=== PATIENT | male | born 1945 | race American Indian/Alaskan Native ===

== ENCOUNTER 2016-10-24 13:34 | Emergency (ER) | payer SELFPAY ==
[2016-10-24 15:11] LABS: Basophils % (Auto) 0.6 % (0.0-1.8); Eosinophils % (Auto) 7.7 % (0.0-4.3); Hematocrit 40.1 % (35.5-45.6); Hemoglobin 13.4 gm/dl (11.8-15.2); Mean Corpuscular HGB Conc 33 % (32-34); Mean Corpuscular Hemoglobin 31 pg (28-32); Mean Corpuscular Volume 94 fl (84-94); Platelet Count 212 K/mm3 (140-440); Red Blood Count 4.27 M/mm3 (3.65-5.03); Red Cell Distribution Width 12.5 % (13.2-15.2)
[2016-10-24 15:30] LABS: Alanine Aminotransferase 17 units/L (7-56); Albumin 3.7 g/dL (3.9-5); Alkaline Phosphatase 56 units/L (35-129); Anion Gap 17 mmol/L; BUN/Creatinine Ratio 17.77; Bilirubin,Total 0.4 mg/dL (0.1-1.2); Blood Urea Nitrogen 16 mg/dL (9-20); Calcium 8.9 mg/dL (8.4-10.2); Carbon Dioxide 23 mmol/L (22-30); Chloride 98.3 mmol/L (98-107); Glucose 286 mg/dL (75-100); Lipase 37 units/L (13-60); Potassium 4.2 mmol/L (3.6-5.0); Sodium 134 mmol/L (137-145); Total Protein 7.4 g/dL (6.3-8.2)
[2016-10-24 17:08] LABS: Bilirubin,Urine NEG (Negative); Blood,Urine NEG (Negative); Ketones,Urine NEG (Negative); Leukocyte Esterase,Urine NEG (Negative); Mucus,Urine FEW /HPF; Nitrite,Urine NEG (Negative); Protein,Urine <15 mg/dL mg/dL (Negative); RBC,Urine < 1.0 /HPF (0.0-6.0); Urobilinogen,Urine < 2.0 mg/dL (<2.0)
[2016-10-24] MEDS ORDERED: ULTRAM PO ONE (17:35)
--- NOTE | 2016-10-24 18:27 | Emergency Department Report ---
ED General Adult HPI - General Chief complaint: Abdominal Pain Stated complaint: ARTHRITIS,ABD PAIN Time Seen by Provider: 10/24/16 17:27 Source: patient Mode of arrival: Ambulatory Limitations: No Limitations - History of Present Illness Initial comments: 71-year-old male with a past medical history of hypertension, glaucoma, diabetes , and arthritis presents to the hospital complains of chronic arthritis pain and chronic GERD. Patient does not appear to have any new or worsening complaints. He has had intermittent pain to his hand secondary to arthritis for at least 2 years. Patient also states he has GERD and has had endoscopy and colonoscopy in the past. He was recently seen by his PMD Dr. Deedee Wagner and states that his labs were unremarkable. Deedee Wagner referred him to a mental health therapist for further treatment and evaluation of his chronic arthritis. Patient states he called the office of the mental health therapist several times a did not have a response so sided to come to the ER for evaluation. No denies fever , swelling, injury, trauma, nausea, vomiting, melena, or hematochezia. Patient is requesting an alternative medication for his stomach acid since his current one is too expensive. Patient's blood sugar is elevated and states he did not take his diabetes medication today. Last dose was yesterday. Patient has pain medication at home but cannot recall the name of the medication but stated typically helps with his pain - Related Data Home Medications Medication Instructions Recorded Confirmed Last Taken Lisinopril/Hydrochlorothiazide 1 tab PO QDAY 12/14/15 12/14/15 Unknown [Zestoretic 10-12.5 mg] Metformin HCl [Glucophage] 1,000 mg PO BID 12/14/15 12/14/15 Unknown glipiZIDE [glipiZIDE XL] 10 mg PO DAILY 12/14/15 12/14/15 Unknown Previous Rx's Medication Instructions Recorded Last Taken Type Cyclobenzaprine [Flexeril 10 MG 10 mg PO TID PRN #15 tablet 11/26/15 Unknown Rx TAB] traMADol [Ultram 50 MG tab] 50 mg PO Q4HR PRN #15 tablet 11/26/15 Unknown Rx Famotidine [Pepcid] 20 mg PO BID #60 tablet 12/16/15 Unknown Rx Esomeprazole Magnesium [Nexium 22.3 mg PO DAILY #30 capsule. 10/24/16 Unknown Rx 24Hr] Allergies Allergy/AdvReac Type Severity Reaction Status Date / Time shellfish derived Allergy Swelling Verified 11/26/15 09:13 ED Review of Systems ROS: Stated complaint: ARTHRITIS,ABD PAIN Other details as noted in HPI Comment: All other systems reviewed and negative Other: Constitutional: No fevers chills Eyes: No eye pain visual changes ENT: No ear pain or throat pain Neck: Denies pain Respiratory: Denies cough wheezing shortness of breath Cardiovascular: Denies chest pain, palpitations, syncope GI: Denies nausea, vomiting, diarrhea, constipation, melena hematochezia : Denies dysuria Musculoskeletal: as per hpi Skin: Denies rash, lesions, erythema Neurologic: Denies headache, numbness, weakness Psychiatric: Denies suicidal ideation, hallucinations Hematological/lymphatic: Denies easy bruising, lymphadenopathy ED Past Medical Hx - Past Medical History Previous Medical History?: Yes Hx Hypertension: Yes Hx Diabetes: Yes Hx Arthritis: Yes (hands) Hx HIV: No Additional medical history: GLAUCOMA - Surgical History Past Surgical History?: No - Social History Smoking Status: Former Smoker Substance Use Type: Alcohol, Prescribed - Medications Home Medications: Home Medications Medication Instructions Recorded Confirmed Last Taken Type Cyclobenzaprine [Flexeril 10 MG 10 mg PO TID PRN #15 tablet 11/26/15 12/14/15 Unknown Rx TAB] traMADol [Ultram 50 MG tab] 50 mg PO Q4HR PRN #15 tablet 11/26/15 12/14/15 Unknown Rx Lisinopril/Hydrochlorothiazide 1 tab PO QDAY 12/14/15 12/14/15 Unknown History [Zestoretic 10-12.5 mg] Metformin HCl [Glucophage] 1,000 mg PO BID 12/14/15 12/14/15 Unknown History glipiZIDE [glipiZIDE XL] 10 mg PO DAILY 12/14/15 12/14/15 Unknown History Famotidine [Pepcid] 20 mg PO BID #60 tablet 12/16/15 Unknown Rx Esomeprazole Magnesium [Nexium 22.3 mg PO DAILY #30 capsule. 10/24/16 Unknown Rx 24Hr] ED Physical Exam - General Limitations: No Limitations - Other Other exam information: General: No limitations, patient is alert in no acute distress Head exam: Atraumatic, normocephalic Eyes exam: Normal appearance ENT: Moist mucous membrane, normal oropharynx Neck exam: Normal inspection, full range of motion Respiratory exam: Clear to auscultation bilateral, no wheezes, rales, crackles Cardiovascular: Normal rate and rhythm, normal heart sounds Abdomen: Soft, nondistended, and nontender, with normal bowel sounds, no rebound, or guarding Extremity: Full range of motion normal inspection no deformity Back: Normal Inspection, full range of motion, no tenderness Neurologic: Alert, oriented x3, cranial nerves intact, no motor or sensory deficit Psychiatric: normal affect, normal mood Skin: Warm, dry, intact ED Course Vital Signs 10/24/16 10/24/16 10/24/16 14:10 17:13 18:00 Temperature 98.2 F Pulse Rate 64 Respiratory 18 Rate Blood Pressure 169/67 132/72 O2 Sat by Pulse 100 100 92 Oximetry ED Medical Decision Making - Lab Data Result diagrams: 10/24/16 14:32 10/24/16 14:32 Lab Results 10/24/16 10/24/16 10/24/16 Range/Units 14:32 14:32 15:50 WBC 6.0 (4.5-11.0) K/mm3 RBC 4.27 (3.65-5.03) M/mm3 Hgb 13.4 (11.8-15.2) gm/dl Hct 40.1 (35.5-45.6) % MCV 94 (84-94) fl MCH 31 (28-32) pg MCHC 33 (32-34) % RDW 12.5 L (13.2-15.2) % Plt Count 212 (140-440) K/mm3 Lymph % (Auto) 34.6 (13.4-35.0) % [place] % (Auto) 10.4 H (0.0-7.3) % Eos % (Auto) 7.7 H (0.0-4.3) % Baso % (Auto) 0.6 (0.0-1.8) % Lymph # 2.1 (1.2-5.4) K/mm3 [place] # 0.6 (0.0-0.8) K/mm3 Eos # 0.5 H (0.0-0.4) K/mm3 Baso # 0.0 (0.0-0.1) K/mm3 Seg Neutrophils % 46.7 (40.0-70.0) % Seg Neutrophils # 2.8 (1.8-7.7) K/mm3 Sodium 134 L (137-145) mmol/L Potassium 4.2 (3.6-5.0) mmol/L Chloride 98.3 (98-107) mmol/L Carbon Dioxide 23 (22-30) mmol/L Anion Gap 17 mmol/L BUN 16 (9-20) mg/dL Creatinine 0.9 (0.8-1.5) mg/dL Estimated GFR > 60 ml/min BUN/Creatinine Ratio 17.77 % Glucose 286 H (75-100) mg/dL Calcium 8.9 (8.4-10.2) mg/dL Total Bilirubin 0.4 (0.1-1.2) mg/dL AST 15 (5-40) units/L ALT 17 (7-56) units/L Alkaline Phosphatase 56 (35-129) units/L Total Protein 7.4 (6.3-8.2) g/dL Albumin 3.7 L (3.9-5) g/dL Albumin/Globulin Ratio 1.0 % Lipase 37 (13-60) units/L Urine Color Yellow (Yellow) Urine Turbidity Clear (Clear) Urine pH 6.0 (5.0-7.0) Ur Specific [place] 1.016 (1.003-1.030) Urine Protein <15 mg/dl (Negative) mg/dL Urine Glucose (UA) >=500 (Negative) mg/dL Urine Ketones Neg (Negative) mg/dL Urine Blood Neg (Negative) Urine Nitrite Neg (Negative) Urine Bilirubin Neg (Negative) Urine Urobilinogen < 2.0 (<2.0) mg/dL Ur Leukocyte Esterase Neg (Negative) Urine WBC (Auto) 0.0 (0.0-6.0) /HPF Urine RBC (Auto) < 1.0 (0.0-6.0) /HPF Urine Mucus Few /HPF - Medical Decision Making No acute medical edition exists. Patient be encouraged to follow-up with mental health therapist and primary care doctor for further management. I will place him on Nexium since he is requesting an alternative stomach acid medication. Glucose likely elevated since patient did have his diabetes medication today. No signs of DKA and Upon recheck glucose was 180's so no insulin given. Should be encouraged to continue his current diabetes medication Meds received in the ED: Tramadol - Differential Diagnosis arthritis, GERD, chronic pain Critical Care Time: No Critical care attestation.: If time is entered above; I have spent that time in minutes in the direct care of this critically ill patient, excluding procedure time. ED Disposition Clinical Impression: Diabetes, Arthritis, GERD (gastroesophageal reflux disease) Disposition: DISCHARGED TO HOME OR SELFCARE Is pt being admited?: No Does the pt Need Aspirin: No Condition: Stable Additional Instructions: Follow up with either of the mental health therapist provided (3 names were provided). Continue taking current pain medication. He had been started on a different stomach acid medication. Return if symptoms worsen. Prescriptions: Esomeprazole Magnesium [Nexium 24Hr] 22.3 mg PO DAILY #30 capsule.dr Referrals: DEEDEE WAGNER MD [Primary Care Provider] - 3-5 Days JARRETT LOUIE MD [Staff Physician] - 3-5 Days FARRAH OCHOA MD [Referring] - 3-5 Days ANNETTE FELIZ MD [Referring] - 3-5 Days Time of Disposition: 18:39
[2016-10-24 18:28] VITALS: BP 132/72
== END 2016-10-24 19:04 | disposition home or self-care (01) ==
LOC: ED 13:34
DX: K21.9 Gastro-esophageal reflux disease without esophagitis (principal); M19.90 Unspecified osteoarthritis, unspecified site; E11.9 Type 2 diabetes mellitus without complications; I10 Essential (primary) hypertension; H40.9 Unspecified glaucoma; Z87.891 Personal history of nicotine dependence; Z91.013 Allergy to seafood
CPT/HCPCS: 36415; 80053; 81001; 82962; 83690; 85025; 99283

== ENCOUNTER 2019-04-23 06:15 | Emergency (ER) | payer OTHER ==
[2019-04-23] MEDS ORDERED: ASPIRIN PO ONE (06:24)
--- NOTE | 2019-04-23 07:19 | XRay Report ---
CHEST 1 VIEW 0640 INDICATION / CLINICAL INFORMATION: Chest Pain. COMPARISON: 11/26/2015 FINDINGS: SUPPORT DEVICES: None HEART / MEDIASTINUM: No significant abnormality. LUNGS / PLEURA: No significant pulmonary or pleural abnormality. No pneumothorax. ADDITIONAL FINDINGS: No significant additional findings. IMPRESSION: No significant acute abnormality Signer Name: Campbell Call MD Signed: 04/23/2019 7:15 AM Workstation Name: [id number]
[2019-04-23 07:30] LABS: BUN/Creatinine Ratio 22; Blood Urea Nitrogen 24 mg/dL (9-20); Calcium 9.7 mg/dL (8.4-10.2); Hemolysis Index 17
[2019-04-23 07:44] LABS: Basophils % (Auto) 0.7 % (0.0-1.8); Eosinophils # (Auto) 0.2 K/mm3 (0.0-0.4); Eosinophils % (Auto) 3.6 % (0.0-4.3); Hematocrit 33.7 % (35.5-45.6); Hemoglobin 11.5 gm/dl (11.8-15.2); Lymphocytes % (Auto) 17.5 % (13.4-35.0); Mean Corpuscular HGB Conc 34 % (32-34); Mean Corpuscular Volume 93 fl (84-94); Monocytes # (Auto) 0.5 K/mm3 (0.0-0.8); Monocytes % (Auto) 8.2 % (0.0-7.3); Platelet Count 326 K/mm3 (140-440); Red Blood Count 3.62 M/mm3 (3.65-5.03); Red Cell Distribution Width 12.6 % (13.2-15.2)
[2019-04-23] MEDS ORDERED: ZOFRAN IV ONE (08:58)
[2019-04-23] MEDS ORDERED: NACL 0.9% 1000 ML 1,000 ML IV ONE (08:58)
[2019-04-23] MEDS ORDERED: ALUM-MAG HYDROX-SIMETH 200-200-20MG/5ML PO ONE (08:58)
[2019-04-23] MEDS ORDERED: PEPCID IV ONE (08:58)
[2019-04-23] MEDS ORDERED: LIDOCAINE VISCOUS 2% PO ONE (08:59)
[2019-04-23 09:25] LABS: Alanine Aminotransferase 11 units/L (7-56); Albumin 4.2 g/dL (3.9-5)
--- NOTE | 2019-04-23 09:28 | Emergency Department Report ---
ED Abdominal Pain HPI - General Chief Complaint: Chest Pain Stated Complaint: ABD PAIN/NAUSEA Time Seen by Provider: 04/23/19 08:36 Source: patient, family, old records reviewed Mode of arrival: Ambulatory Limitations: No Limitations - History of Present Illness Initial Comments: 73-year-old male with a past medical history of hypertension, prostate treated with radiation seeds, and glaucoma presents to the hospital withcomplains of intermittent nausea, vomiting, and epigastric pain 3 weeks. Patient having intermittent vomiting and "spitting" symptoms. Patient complains of decreased appetite and 40 pound weight loss since October. Last night he developed epigastric burning pain radiating to the chest which is constant. Patient denies hematochezia, hematemesis, fever, dysuria, diarrhea, or recent travel. Like stool "on and off". Patient was admitted here in December 2015 for GI bleed. He had a normal colonoscopy within normal EGD with suspected diagnosis of gastritis. Patient is noticed to have intermittent spitting episodes here in the ED. He denies feeling like food is getting stuck in his chest with swallowing. Denies previous abdominal surgeries.Patient does not have a primary care doctor. Patient currently taking Carafate, ranitidine 300 daily at bedtime, and cyproheptadine for appetite prescribed by an urgent care center. Severity scale (0 -10): 5 - Related Data Home Medications Medication Instructions Recorded Confirmed Last Taken Lisinopril/Hydrochlorothiazide 1 tab PO QDAY 12/14/15 12/14/15 Unknown [Zestoretic 10-12.5 mg] Metformin HCl [Glucophage] 1,000 mg PO BID 12/14/15 12/14/15 Unknown glipiZIDE [glipiZIDE XL] 10 mg PO DAILY 12/14/15 12/14/15 Unknown Previous Rx's Medication Instructions Recorded Last Taken Type Cyclobenzaprine [Flexeril 10 MG 10 mg PO TID PRN #15 tablet 11/26/15 Unknown Rx TAB] traMADol [Ultram 50 MG tab] 50 mg PO Q4HR PRN #15 tablet 11/26/15 Unknown Rx Famotidine [Pepcid] 20 mg PO BID #60 tablet 12/16/15 Unknown Rx Esomeprazole Magnesium [Nexium 22.3 mg PO DAILY #30 capsule. 10/24/16 Unknown Rx 24Hr] Ondansetron [Zofran Odt] 4 mg PO Q8HR PRN #20 tab.rapdis 04/23/19 Unknown Rx Allergies Allergy/AdvReac Type Severity Reaction Status Date / Time shellfish derived Allergy Swelling Verified 11/26/15 09:13 ED Review of Systems ROS: Stated complaint: ABD PAIN/NAUSEA Other details as noted in HPI Comment: All other systems reviewed and negative ED Past Medical Hx - Past Medical History Previous Medical History?: Yes Hx Hypertension: Yes Hx Diabetes: Yes Hx of Cancer: Yes (prostate) Hx Arthritis: Yes (hands) Hx HIV: No Additional medical history: GLAUCOMA - Surgical History Past Surgical History?: Yes Additional Surgical History: prostate seeds - Social History Smoking Status: Never Smoker Substance Use Type: None - Medications Home Medications: Home Medications Medication Instructions Recorded Confirmed Last Taken Type Cyclobenzaprine [Flexeril 10 MG 10 mg PO TID PRN #15 tablet 11/26/15 12/14/15 Unknown Rx TAB] traMADol [Ultram 50 MG tab] 50 mg PO Q4HR PRN #15 tablet 11/26/15 12/14/15 Unknown Rx Lisinopril/Hydrochlorothiazide 1 tab PO QDAY 12/14/15 12/14/15 Unknown History [Zestoretic 10-12.5 mg] Metformin HCl [Glucophage] 1,000 mg PO BID 12/14/15 12/14/15 Unknown History glipiZIDE [glipiZIDE XL] 10 mg PO DAILY 12/14/15 12/14/15 Unknown History Famotidine [Pepcid] 20 mg PO BID #60 tablet 12/16/15 Unknown Rx Esomeprazole Magnesium [Nexium 22.3 mg PO DAILY #30 capsule. 10/24/16 Unknown Rx 24Hr] Ondansetron [Zofran Odt] 4 mg PO Q8HR PRN #20 tab.rapdis 04/23/19 Unknown Rx ED Physical Exam - General Limitations: Other - Other Other exam information: Gen.: No acute distress Head: Atraumatic Eyes: Normal appearance EENT: Moist mucous membranes Neck: Normal appearance, no posterior midline tenderness, no meningismus Chest: Clear to auscultation bilaterally Cardiovascular: Regular rate and rhythm Abdomen: Normal appearance, soft, nontender, no rebound or guarding, normal bowel sounds Back: Normal appearance, nontender Extremity: Full range of motion, normal appearance Neuro: Alert, clear speech, no focal motor or sensory deficit Psychiatric: Appropriate Skin: No rash ED Course Vital Signs 04/23/19 04/23/19 04/23/19 06:21 08:34 08:35 Temperature 98.5 F 98.2 F Pulse Rate 67 50 L Respiratory 14 14 14 Rate Blood Pressure 148/63 Blood Pressure 139/56 [Left] O2 Sat by Pulse 100 100 100 Oximetry 04/23/19 04/23/19 04/23/19 09:31 10:00 10:45 Temperature Pulse Rate 73 62 56 L Respiratory 12 9 L 13 Rate Blood Pressure 142/68 135/69 142/68 Blood Pressure [Left] O2 Sat by Pulse 98 95 98 Oximetry 04/23/19 11:21 Temperature Pulse Rate 56 L Respiratory 13 Rate Blood Pressure Blood Pressure 112/55 [Left] O2 Sat by Pulse 97 Oximetry - Reevaluation(s) Reevaluation #1: 04/23/19 12:06 pt tolerating po intake and feels better with ED tx ED Medical Decision Making - Lab Data Result diagrams: 04/23/19 06:46 04/23/19 06:46 Lab Results 04/23/19 04/23/19 04/23/19 Range/Units 06:46 06:46 06:57 WBC 5.9 (4.5-11.0) K/mm3 RBC 3.62 L (3.65-5.03) M/mm3 Hgb 11.5 L (11.8-15.2) gm/dl Hct 33.7 L (35.5-45.6) % MCV 93 (84-94) fl MCH 32 (28-32) pg MCHC 34 (32-34) % RDW 12.6 L (13.2-15.2) % Plt Count 326 (140-440) K/mm3 Lymph % (Auto) 17.5 (13.4-35.0) % [place] % (Auto) 8.2 H (0.0-7.3) % Eos % (Auto) 3.6 (0.0-4.3) % Baso % (Auto) 0.7 (0.0-1.8) % Lymph # 1.0 L (1.2-5.4) K/mm3 [place] # 0.5 (0.0-0.8) K/mm3 Eos # 0.2 (0.0-0.4) K/mm3 Baso # 0.0 (0.0-0.1) K/mm3 Seg Neutrophils % 70.0 (40.0-70.0) % Seg Neutrophils # 4.1 (1.8-7.7) K/mm3 Sodium 137 (137-145) mmol/L Potassium 3.9 (3.6-5.0) mmol/L Chloride 96.9 L (98-107) mmol/L Carbon Dioxide 26 (22-30) mmol/L Anion Gap 18 mmol/L BUN 24 H (9-20) mg/dL Creatinine 1.1 (0.8-1.5) mg/dL Estimated GFR > 60 ml/min BUN/Creatinine Ratio 22 % Glucose 133 H (75-100) mg/dL Calcium 9.7 (8.4-10.2) mg/dL Total Bilirubin 0.40 (0.1-1.2) mg/dL Direct Bilirubin < 0.2 (0-0.2) mg/dL AST 14 (5-40) units/L ALT 11 (7-56) units/L Alkaline Phosphatase 53 (35-129) units/L Troponin T < 0.010 (0.00-0.029) ng/mL Total Protein 7.7 (6.3-8.2) g/dL Albumin 4.2 (3.9-5) g/dL Albumin/Globulin Ratio 1.2 % Lipase 35 (13-60) units/L Urine Color (Yellow) Urine Turbidity (Clear) Urine pH (5.0-7.0) Ur Specific [place] (1.003-1.030) Urine Protein (Negative) mg/dL Urine Glucose (UA) (Negative) mg/dL Urine Ketones (Negative) mg/dL Urine Blood (Negative) Urine Nitrite (Negative) Urine Bilirubin (Negative) Urine Urobilinogen (<2.0) mg/dL Ur Leukocyte Esterase (Negative) Urine WBC (Auto) (0.0-6.0) /HPF Urine RBC (Auto) (0.0-6.0) /HPF Urine Mucus /HPF 04/23/19 04/23/19 Range/Units 09:21 Unknown WBC (4.5-11.0) K/mm3 RBC (3.65-5.03) M/mm3 Hgb (11.8-15.2) gm/dl Hct (35.5-45.6) % MCV (84-94) fl MCH (28-32) pg MCHC (32-34) % RDW (13.2-15.2) % Plt Count (140-440) K/mm3 Lymph % (Auto) (13.4-35.0) % [place] % (Auto) (0.0-7.3) % Eos % (Auto) (0.0-4.3) % Baso % (Auto) (0.0-1.8) % Lymph # (1.2-5.4) K/mm3 [place] # (0.0-0.8) K/mm3 Eos # (0.0-0.4) K/mm3 Baso # (0.0-0.1) K/mm3 Seg Neutrophils % (40.0-70.0) % Seg Neutrophils # (1.8-7.7) K/mm3 Sodium (137-145) mmol/L Potassium (3.6-5.0) mmol/L Chloride (98-107) mmol/L Carbon Dioxide (22-30) mmol/L Anion Gap mmol/L BUN (9-20) mg/dL Creatinine (0.8-1.5) mg/dL Estimated GFR ml/min BUN/Creatinine Ratio % Glucose (75-100) mg/dL Calcium (8.4-10.2) mg/dL Total Bilirubin (0.1-1.2) mg/dL Direct Bilirubin (0-0.2) mg/dL AST (5-40) units/L ALT (7-56) units/L Alkaline Phosphatase (35-129) units/L Troponin T < 0.010 (0.00-0.029) ng/mL Total Protein (6.3-8.2) g/dL Albumin (3.9-5) g/dL Albumin/Globulin Ratio % Lipase (13-60) units/L Urine Color Yellow (Yellow) Urine Turbidity Clear (Clear) Urine pH 6.0 (5.0-7.0) Ur Specific [place] 1.025 (1.003-1.030) Urine Protein <15 mg/dl (Negative) mg/dL Urine Glucose (UA) Neg (Negative) mg/dL Urine Ketones 20 (Negative) mg/dL Urine Blood Neg (Negative) Urine Nitrite Neg (Negative) Urine Bilirubin Neg (Negative) Urine Urobilinogen 4.0 (<2.0) mg/dL Ur Leukocyte Esterase Neg (Negative) Urine WBC (Auto) < 1.0 (0.0-6.0) /HPF Urine RBC (Auto) < 1.0 (0.0-6.0) /HPF Urine Mucus Few /HPF - EKG Data -: EKG Interpreted by [facility] EKG shows normal: sinus rhythm, ST-T waves (no stemi) Rate: normal - EKG Data When compared to previous EKG there are: no significant change - Radiology Data Radiology results: report reviewed CHEST 1 VIEW 0640 INDICATION / CLINICAL INFORMATION: Chest Pain. COMPARISON: 11/26/2015 FINDINGS: SUPPORT DEVICES: None HEART / MEDIASTINUM: No significant abnormality. LUNGS / PLEURA: No significant pulmonary or pleural abnormality. No pneumothorax. ADDITIONAL FINDINGS: No significant additional findings. IMPRESSION: No significant acute abnormality CT ABDOMEN AND PELVIS WITH CONTRAST INDICATION / CLINICAL INFORMATION: nausea, vomiting, weight loss, dec appetite. TECHNIQUE: Axial CT images were obtained through the abdomen and pelvis after 100 mL Omnipaque [address] scans at this location are performed using CT dose reduction for ALARA by means of automated exposure control. COMPARISON: None available. FINDINGS: LOWER CHEST: No significant abnormality. LIVER: No significant abnormality. GALLBLADDER: No significant abnormality. BILE DUCTS: No significant abnormality. PANCREAS: No significant abnormality. SPLEEN: No significant abnormality. ADRENALS: 1.3 x 1.6 cm hypodense right adrenal nodule measuring 26 Hounsfield units on this postcontrast study. Left adrenal appears normal. RIGHT KIDNEY and URETER: No significant abnormality. LEFT KIDNEY and URETER: No significant abnormality. STOMACH and SMALL BOWEL: No significant abnormality. COLON: Increased density throughout the colon possibly from recent oral contrast or other ingested material. No acute findings. APPENDIX: No significant abnormali ty. PERITONEUM: No free fluid. No free air. No fluid collection. LYMPH NODES: No significant adenopathy. AORTA and ARTERIES: No significant abnormality. IVC and VEINS: No significant abnormality. URINARY BLADDER: Bladder is contracted with moderate, diffuse bladder wall thickening. No stones. REPRODUCTIVE ORGANS: Numerous radiation implants in the prostate. ADDITIONAL FINDINGS: None. SKELETAL SYSTEM: No significant abnormality. IMPRESSION: 1. No inflammatory process or bowel obstruction. 2. Moderately thickened urinary bladder wall which could represent cystitis. 3. Right adrenal nodule which is statistically likely to be, but not diagnostic of, benign adrenal adenoma. - Medical Decision Making plan to d/c pt home tolerating po ongoing sx imaging and ed work without acute abnormality zofran prescribed continue other meds pmd and gi f/u recommended - Differential Diagnosis cancer, gastritis, PUD, RI, GERD Critical Care Time: No Critical care attestation.: If time is entered above; I have spent that time in minutes in the direct care of this critically ill patient, excluding procedure time. ED Disposition Clinical Impression: Nausea & vomiting, Decreased appetite, History of gastritis Disposition: TO HOME OR SELFCARE Is pt being admited?: No Does the pt Need Aspirin: No Condition: Stable Instructions: Gastritis (ED), Acute Nausea and Vomiting (ED) Additional Instructions: Take the medication as prescribed. Continue your current medications. Follow- up with your doctor or with the doctor/clinic provided. Return if symptoms worsen as indicated by your discharge instructions. Prescriptions: Ondansetron [Zofran Odt] 4 mg PO Q8HR PRN #20 tab.rapdis PRN Reason: Nausea And Vomiting Referrals: [facility] [Provider Group] - 3-5 Days (GI doctor ) [facility] [Provider Group] - 3-5 Days (Primary care clinic) SAMANTHA JASON MD [Staff Physician] - 3-5 Days (Primary care doctor) Time of Disposition: 12:10
[2019-04-23 09:43] LABS: Bilirubin,Direct < 0.2 mg/dL (0-0.2)
[2019-04-23 09:53] LABS: Bilirubin,Urine NEG (Negative); Blood,Urine NEG (Negative); Color,Urine Yellow (Yellow); Mucus,Urine FEW /HPF; Protein,Urine <15 mg/dL mg/dL (Negative); RBC,Urine < 1.0 /HPF (0.0-6.0); WBC,Urine < 1.0 /HPF (0.0-6.0)
--- NOTE | 2019-04-23 10:59 | Cat Scan Report ---
CT ABDOMEN AND PELVIS WITH CONTRAST INDICATION / CLINICAL INFORMATION: nausea, vomiting, weight loss, dec appetite. TECHNIQUE: Axial CT images were obtained through the abdomen and pelvis after 100 mL Omnipaque [address] scans at this location are performed using CT dose reduction for ALARA by means of automated exposure control. COMPARISON: None available. FINDINGS: LOWER CHEST: No significant abnormality. LIVER: No significant abnormality. GALLBLADDER: No significant abnormality. BILE DUCTS: No significant abnormality. PANCREAS: No significant abnormality. SPLEEN: No significant abnormality. ADRENALS: 1.3 x 1.6 cm hypodense right adrenal nodule measuring 26 Hounsfield units on this postcontr ast study. Left adrenal appears normal. RIGHT KIDNEY and URETER: No significant abnormality. LEFT KIDNEY and URETER: No significant abnormality. STOMACH and SMALL BOWEL: No significant abnormality. COLON: Increased density throughout the colon possibly from recent oral contrast or other ingested ma terial. No acute findings. APPENDIX: No significant abnormality. PERITONEUM: No free fluid. No free air. No fluid collection. LYMPH NODES: No significant adenopathy. AORTA and ARTERIES: No significant abnormality. IVC and VEINS: No significant abnormality. URINARY BLADDER: Bladder is contracted with moderate, diffuse bladder wall thickening. No stones. REPRODUCTIVE ORGANS: Numerous radiation implants in the prostate. ADDITIONAL FINDINGS: None. SKELETAL SYSTEM: No significant abnormality. IMPRESSION: 1. No inflammatory process or bowel obstruction. 2. Moderately thickened urinary bladder wall which could represent cystitis. 3. Right adrenal nodule which is statistically likely to be, but not diagnostic of, benign adrenal ad enoma. Signer Name: Israel Judd MD Signed: 04/23/2019 10:54 AM Workstation Name: [id number]
[2019-04-23 12:26] VITALS: BP 111/58
== END 2019-04-23 12:36 | disposition home or self-care (01) ==
LOC: ED 06:15
DX: R11.2 Nausea with vomiting, unspecified (principal); R10.13 Epigastric pain; R63.0 Anorexia; I10 Essential (primary) hypertension; E11.9 Type 2 diabetes mellitus without complications; M19.90 Unspecified osteoarthritis, unspecified site; Z98.890 Other specified postprocedural states; Z79.899 Other long term (current) drug therapy; Z91.013 Allergy to seafood
CPT/HCPCS: 36415; 71045; 74177; 80048; 80076; 81001; 83690; 84484; 85025; 93005; 93010; 96361; 96374; 96375; 99285; J2405; J7030; Q9967

== ENCOUNTER 2019-06-30 23:39 | Emergency (ER) | payer MEDICAID, MEDICARE, OTHER ==
[2019-07-01] MEDS ORDERED: ASPIRIN 325 MG TAB PO ONE (00:12)
[2019-07-01 00:45] LABS: Basophils # (Auto) 0.1 K/mm3 (0.0-0.1); Basophils % (Auto) 1.5 % (0.0-1.8); Eosinophils # (Auto) 0.3 K/mm3 (0.0-0.4); Eosinophils % (Auto) 6.1 % (0.0-4.3); Hemoglobin 12.9 gm/dl (11.8-15.2); Lymphocytes # (Auto) 1.1 K/mm3 (1.2-5.4); Lymphocytes % (Auto) 25.9 % (13.4-35.0); Mean Corpuscular HGB Conc 33 % (32-34); Mean Corpuscular Volume 91 fl (84-94); Monocytes # (Auto) 0.4 K/mm3 (0.0-0.8); Monocytes % (Auto) 9.6 % (0.0-7.3); Platelet Count 310 K/mm3 (140-440); Red Cell Distribution Width 15.7 % (13.2-15.2)
--- NOTE | 2019-07-01 00:56 | XRay Report ---
CHEST 1 VIEW INDICATION: Chest Pain. COMPARISON: 11/26/2015, 04/23/2019. FINDINGS: Support devices: None. Heart: Within normal limits. Lungs/Pleura: No acute air space or interstitial disease. Widening at the right paratracheal base wit h tracheal compression. This is unchanged dating to 2015. Additional findings: None. IMPRESSION: 1. No acute infiltrate. 2. 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 Signer Name: Sharif Martins MD Signed: 07/01/2019 12:52 AM Workstation Name: [id number]
[2019-07-01 01:08] LABS: BUN/Creatinine Ratio 17; Blood Urea Nitrogen 17 mg/dL (9-20); Calcium 9.5 mg/dL (8.4-10.2); Hemolysis Index 23
[2019-07-01] MEDS ORDERED: FAMOTIDINE 20 MG/2 ML INJ IV ONE (02:45)
[2019-07-01] MEDS ORDERED: ACETAMINOPHEN 500 MG TAB PO ONE (02:45)
[2019-07-01] MEDS ORDERED: SUCRALFATE 1 GM/10 ML ORAL LIQD PO ONE (02:45)
[2019-07-01] MEDS ORDERED: ALUM-MAG HYDROXIDE-SIMETHICONE 200-200-20MG/5ML ORAL LIQD 30 ML PO ONE (02:45)
[2019-07-01] MEDS ORDERED: SODIUM CHLORIDE 0.9% 500 ML 500 ML IV ONE (02:45)
--- NOTE | 2019-07-01 02:53 | Emergency Department Report ---
ED General Adult HPI - General Chief complaint: Chest Pain Stated complaint: CHEST PAIN Time Seen by Provider: 07/01/19 02:14 Source: patient, RN notes reviewed, old records reviewed Mode of arrival: Ambulatory Limitations: No Limitations - History of Present Illness Initial comments: This is a 74-year-old gentleman. This patient is not known to this provider previously. He may have a history of gastritis. He does not have a primary care doctor. He presents to the ER with a complaint of a few weeks left-sided chest pain that moves to the right upper quadrant and right lower quadrant of his abdomen. The pain seems to worsen when eating heavy and spicy foods. He is not having pain at this time. The pain does not radiate to the back, arms or neck. There is no vomiting or diaphoresis. There is no complaint of exertional shortness of breat h. The patient denies DVT and pulmonary embolism risk factors. He denies urinary symptoms such as dysuria, but has chronic urinary hesitancy see, secondary to "prostate issues." He reports he is having crampy abdominal discomfort at this time, also present for weeks. He reports that he is not fo llowing up with the primary care doctor secondary to insurance issues. -: week(s) Location: chest Radiation: abdomen Quality: aching Consistency: intermittent Improves with: other Worsens with: other - Related Data Home Medications Medication Instructions Recorded Confirmed Last Taken Lisinopril/Hydrochlorothiazide 1 tab PO QDAY 12/14/15 12/14/15 Unknown [Zestoretic 10-12.5 mg] Metformin HCl [Glucophage] 1,000 mg PO BID 12/14/15 12/14/15 Unknown glipiZIDE [glipiZIDE XL] 10 mg PO DAILY 12/14/15 12/14/15 Unknown Previous Rx's Medication Instructions Recorded Last Taken Type Cyclobenzaprine [Flexeril 10 MG 10 mg PO TID PRN #15 tablet 11/26/15 Unknown Rx TAB] traMADoL [Ultram 50 MG tab] 50 mg PO Q4HR PRN #15 tablet 11/26/15 Unknown Rx Famotidine [Pepcid] 20 mg PO BID #60 tablet 12/16/15 Unknown Rx Esomeprazole Magnesium [Nexium 22.3 mg PO DAILY #30 capsule. 10/24/16 Unknown Rx 24Hr] Ondansetron [Zofran Odt] 4 mg PO Q8HR PRN #20 tab.rapdis 04/23/19 Unknown Rx Allergies Allergy/AdvReac Type Severity Reaction Status Date / Time shellfish derived Allergy Swelling Verified 11/26/15 09:13 ED Review of Systems ROS: Stated complaint: CHEST PAIN Other details as noted in HPI Constitutional: denies: fever Eyes: denies: eye discharge ENT: denies: congestion Respiratory: denies: cough, shortness of breath Cardiovascular: chest pain Gastrointestinal: abdominal pain Genitourinary: denies: urgency, dysuria, frequency, testicular pain Musculoskeletal: back pain, arthralgia, myalgia Neurological: denies: as per HPI, weakness Hematological/Lymphatic: denies: easy bleeding ED Past Medical Hx - Past Medical History Hx Hypertension: Yes Hx Diabetes: Yes Hx Arthritis: Yes (hands) Hx HIV: No Additional medical history: GLAUCOMA - Surgical History Additional Surgical History: prostate seeds - Social History Smoking Status: Never Smoker Substance Use Type: None - Medications Home Medications: Home Medications Medication Instructions Recorded Confirmed Last Taken Type Cyclobenzaprine [Flexeril 10 MG 10 mg PO TID PRN #15 tablet 11/26/15 12/14/15 Unknown Rx TAB] traMADoL [Ultram 50 MG tab] 50 mg PO Q4HR PRN #15 tablet 11/26/15 12/14/15 Unknown Rx Lisinopril/Hydrochlorothiazide 1 tab PO QDAY 12/14/15 12/14/15 Unknown History [Zestoretic 10-12.5 mg] Metformin HCl [Glucophage] 1,000 mg PO BID 12/14/15 12/14/15 Unknown History glipiZIDE [glipiZIDE XL] 10 mg PO DAILY 12/14/15 12/14/15 Unknown History Famotidine [Pepcid] 20 mg PO BID #60 tablet 12/16/15 Unknown Rx Esomeprazole Magnesium [Nexium 22.3 mg PO DAILY #30 capsule. 10/24/16 Unknown Rx 24Hr] Ondansetron [Zofran Odt] 4 mg PO Q8HR PRN #20 tab.rapdis 04/23/19 Unknown Rx ED Physical Exam - General Limitations: No Limitations General appearance: alert, in no apparent distress - Head Head exam: Present: atraumatic, normocephalic - Eye Eye exam: Present: normal appearance, EOMI. Absent: nystagmus - ENT ENT exam: Present: normal exam, normal orophraynx, mucous membranes moist, normal external ear exam - Neck Neck exam: Present: normal inspection, full ROM. Absent: tenderness, meningismus - Respiratory Respiratory exam: Present: normal lung sounds bilaterally. Absent: respiratory distress - Cardiovascular Cardiovascular Exam: Present: regular rate, normal rhythm, normal heart sounds. Absent: bradycardia, tachycardia, irregular rhythm, systolic murmur, diastolic murmur, rubs, gallop - GI/Abdominal GI/Abdominal exam: Present: soft. Absent: distended, tenderness, guarding, rebound, rigid, pulsatile mass - Rectal Rectal exam: Present: deferred - Extremities Exam Extremities exam: Present: normal inspection, full ROM, other (2+ pulses noted in the bilateral upper, lower extremities. There is no long bone tenderness. Musculoskeletal compartments are soft. The pelvis is stable.). Absent: pedal edema, joint swelling, calf tenderness - Back Exam Back exam: Present: normal inspection, full ROM. Absent: tenderness, CVA tenderness (R), CVA tenderness (L), paraspinal tenderness, vertebral tenderness - Neurological Exam Neurological exam: Present: alert, other (there is no facial droop. The tongue is midline. Extraocular movements are intact bilaterally. Patient speaking in full complete sentences. Shoulder shrug is intact bilaterally. Hearing is grossly intact bilaterally. Visual acuity intact to finger counting and color perception at a close distance. 5/5 strength 4 extremities. Sensation intact to light touch in 4 extremities.). Absent: motor sensory deficit - Psychiatric Psychiatric exam: Present: normal affect, normal mood - Skin Skin exam: Present: warm, dry, intact, normal color. Absent: rash ED Course Vital Signs 06/30/19 07/01/19 07/01/19 23:51 02:20 02:31 Temperature 98.2 F Pulse Rate 64 74 58 L Respiratory 18 12 17 Rate Blood Pressure 128/56 141/75 O2 Sat by Pulse 100 99 100 Oximetry 07/01/19 07/01/19 03:53 04:00 Temperature Pulse Rate 78 63 Respiratory 13 Rate Blood Pressure 141/75 134/71 O2 Sat by Pulse 100 Oximetry - Reevaluation(s) Reevaluation #1: 07/01/19 02:51 Differential diagnosis, including not limited to: GERD, gastritis, hiatal hernia, pneumonia, pulmonary embolism, acute coronary syndrome, constipation, obstruction, malignancy, urinary tract infection Assessment and plan: 74-year-old gentleman with 2 complaints Complaint #1, chest pain present for a few weeks, radiates from the left side of the chest to the right side of the chest. The patient is not tachycardic, tachypneic, or hypoxic. He endorses no pulmonary embolism or DVT risk factors and he is low risk by well's criteria. EKG nonspecifically abnormal, however appears unchanged from prior. Patient's advanced age is reviewed and appreciated, however, given history of weeks of symptoms, acute coronary syndrome is unlikely. Troponin negative 1. CT scan chest, repeat troponin, repeat EKG pending, x-ray the chest is unremarkable. This patient in my opinion is likely low risk for major adverse cardiac event, and at this point time does not meet criteria for hospitalization for emergent cardiac risk stratification. He can follow-up with an outpatient inspector plating to obtain outpatient expedited cardiology follow-up. As for this institutions protocols and policy, his contact information will be sent to our local cardiology practice, [facility], he will need to follow-up as an outpatient to complete a cardiac risk stratification. Complaint #2, abdominal pain and cramping. Abdominal pain and cramping present for weeks. He is afebrile with reassuring vital signs, and a benign abdominal examination. Given advanced age, lack of ability to follow-up, we will obtain advanced imaging of the abdomen pelvis, and urinalysis, and treat his symptoms. At this point time, he does not meet criteria for hospitalization for his subacute/chronic undifferentiated abdominal pain. Reevaluation #2: 07/01/19 02:55 Patient is noted to have a goiter which has been present for years. He will need to follow-up with an outpatient primary care doctor to coordinate outpatient care for this. Reevaluation #3: 07/01/19 04:16 EKG unchanged 2. Troponin negative and unchanged 2. CT scan chest shows no acute or emergent condition. A goiter is demonstrated which has been present since 2015. He will need to follow-up with an outpatient primary care doctor or die attacher for this. CT scan abdomen pelvis shows no acute pathology. Urinalysis pending at this time. ED Medical Decision Making - Lab Data Result diagrams: 07/01/19 00:14 07/01/19 00:14 Vital Signs 06/30/19 07/01/19 07/01/19 23:51 02:20 02:31 Temperature 98.2 F Pulse Rate 64 74 58 L Respiratory 18 12 17 Rate Blood Pressure 128/56 141/75 O2 Sat by Pulse 100 99 100 Oximetry Lab Results 07/01/19 07/01/19 Range/Units 00:14 00:14 WBC 4.1 L (4.5-11.0) K/mm3 RBC 4.30 (3.65-5.03) M/mm3 Hgb 12.9 (11.8-15.2) gm/dl Hct 39.0 (35.5-45.6) % MCV 91 (84-94) fl MCH 30 (28-32) pg MCHC 33 (32-34) % RDW 15.7 H (13.2-15.2) % Plt Count 310 (140-440) K/mm3 Lymph % (Auto) 25.9 (13.4-35.0) % [place] % (Auto) 9.6 H (0.0-7.3) % Eos % (Auto) 6.1 H (0.0-4.3) % Baso % (Auto) 1.5 (0.0-1.8) % Lymph # 1.1 L (1.2-5.4) K/mm3 [place] # 0.4 (0.0-0.8) K/mm3 Eos # 0.3 (0.0-0.4) K/mm3 Baso # 0.1 (0.0-0.1) K/mm3 Seg Neutrophils % 56.9 (40.0-70.0) % Seg Neutrophils # 2.3 (1.8-7.7) K/mm3 Sodium 137 (137-145) mmol/L Potassium 4.4 (3.6-5.0) mmol/L Chloride 96.2 L (98-107) mmol/L Carbon Dioxide 26 (22-30) mmol/L Anion Gap 19 mmol/L BUN 17 (9-20) mg/dL Creatinine 1.0 (0.8-1.5) mg/dL Estimated GFR > 60 ml/min BUN/Creatinine Ratio 17 % Glucose 124 H (75-100) mg/dL Calcium 9.5 (8.4-10.2) mg/dL Troponin T < 0.010 (0.00-0.029) ng/mL - EKG Data -: EKG Interpreted by Me EKG shows normal: sinus rhythm Rate: normal - EKG Data 07/01/19 02:54 The EKG today is limited by motion artifact, however, there is a sinus br adycardia, normal axis, QTC is within normal limits, there is low voltage, there is borderline left ventricular hypertrophy, the EKG is abnormal, it is not consistent with ST elevation myocardial infarction, it appears to be unchanged from prior EKG from 04/23/2019. - Radiology Data Radiology results: report reviewed, image reviewed Print Report Referring Physician: DAMION FERREIRA Patient Name: MICHELLE BARAKAT Date of : 1945 Sex: Male Report Date: 2019-07-01 Report Status: [place] [address] XRay Report Signed Patient: MICHELLE BARAKAT MR#: [id number] 8 : 1945 Acct:[id number] Age/Sex: 74 / M ADM Date: 06/30/19 Loc: ED Attending Dr: Ordering Physician: DAMION FERREIRA MD Date of Service: 07/01/19 Procedure(s): XR chest 1V ap Accession Number(s): [id number] cc: DAMION FERREIRA MD Fluoro Time In Minutes: CHEST 1 VIEW INDICATION: Chest Pain. COMPARISON: 11/26/2015, 04/23/2019. FINDINGS: Support devices: None. Heart: Within normal limits. Lungs/Pleura: No acute air space or interstitial disease. Widening at the right paratracheal base with tracheal compression. This is unchanged dating to 2015. Additional findings: None. IMPRESSION: 1. No acute infiltrate. 2. 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 Signer Name: Sharif Martins MD Signed: 07/01/2019 12:52 AM Workstation Name: [id number] Transcribed By: ES Dictated By: Sharif Martins MD Electronically Authenticated By: Sharif Martins MD Signed Date/Time: 07/01/1950 DD/ Critical care attestation.: If time is entered above; I have spent that time in minutes in the direct care of this critically ill patient, excluding procedure time. ED Disposition Clinical Impression: Abdominal pain, Goiter, Chest pain Disposition: DC-01 TO HOME OR SELFCARE Is pt being admited?: No Does the pt Need Aspirin: No Condition: Stable Instructions: Chest Pain (ED) Additional Instructions: Do not take metformin medication for the next 2 days if patient takes this medication. Patient was not found to have an emergency medical condition today while here in the emergency room. Multiple incidental findings were noted, which should be followed up by her primary care doctor within the next month. Patient was found to have a large goiter, tumor from the neck, pressing on the external airway. This has been present since 2016. The patient should follow- up with the primary care doctor or die attacher/ENT doctor for this within the next month. CT scan abdomen pelvis showed no acute or emergent condition. Incidental nonemergent findings were noted, patient should have a primary care doctor contact medical records department to obtain medical records to follow-up on nonemergent findings. Recommend follow-up with an outpatient inspector plating within the next week for history of chest pain. Local cardiology practice includes [facility] Local primary care practice includes [facility]. Local ENT doctor includes Dr. Bernard Jang Not following up with primary care or otolaryngology for large next goiter may result an undiagnosed cancer, tumor, malignancy. Avoid consumption of heavy and/or spicy foods, Motrin, ibuprofen, Naprosyn, Aleve. Patient should take aspirin on a daily basis, 81 mg, which can be purchased [id number], and he may take Tylenol [id number], 325 mg by mouth, every 4-6 hours as needed for pain. Return to the emergency room right away with new, worsened or different symptoms, or symptoms not present on the initial emergency room evaluation. Referrals: JAVIER FERGUSON MD [Staff Physician] - 3-5 Days [facility] [Provider Group] - 3-5 Days [facility] [Provider Group] - 3-5 Days
--- NOTE | 2019-07-01 04:04 | Cat Scan Report ---
CT angio chest, CT abdomen pelvis w con INDICATION / CLINICAL INFORMATION: chest pain radiates to abdom,en. TECHNIQUE: Axial CT images were obtained after injection of Omnipaque 350, 100 cc IV contrast using CTA protocol . 3 plane MIP / 3D reconstructions were produced. All CT scans at this location are performed using C T dose reduction for ALARA by means of automated exposure control. COMPARISON: None available. CTA CHEST: The lungs contain no mass, infiltrate or pleural fluid. Negative for mediastinal adenopath y. Thoracic goiter is present right greater than left with associated prominent tracheal compression. CT ABDOMEN: Evaluation the parenchymal organs demonstrates small bilateral renal cysts. Negative for abdominal mass, localized fluid collection or inflammation. The bowel is not dilated or thickened. Mi ld ascites and soft tissue anasarca are noted. The appendix is normal. CT PELVIS: Negative for pelvic mass, fluid or inflammation. Mild pelvic fluid is noted. The prostate gland contains radioactive prostate seeds and is mildly enlarged. Diffuse bladder thicke chace is present. IMPRESSION: 1. Negative for pulmonary embolus or pneumonia. 2. Bilateral intrathoracic goiter with tracheal compression. 3. Mild ascites and soft tissue edema. 4. Prostate enlargement with symmetric bladder thickening. Signer Name: Sharif Martins MD Signed: 07/01/2019 4:00 AM Workstation Name: [id number]
[2019-07-01 04:58] LABS: Bacteria,Urine 1+ /HPF (Negative); Bilirubin,Urine NEG (Negative); Blood,Urine NEG (Negative); Color,Urine Yellow (Yellow); Mucus,Urine 2+ /HPF; WBC,Urine < 1.0 /HPF (0.0-6.0)
[2019-07-01 05:34] VITALS: BP 126/65
== END 2019-07-01 05:35 | disposition home or self-care (01) ==
LOC: ED 23:39
DX: R07.89 Other chest pain (principal); R10.9 Unspecified abdominal pain; E04.9 Nontoxic goiter, unspecified; E11.9 Type 2 diabetes mellitus without complications; I10 Essential (primary) hypertension; M19.90 Unspecified osteoarthritis, unspecified site; Z98.890 Other specified postprocedural states; Z79.899 Other long term (current) drug therapy; Z91.013 Allergy to seafood
CPT/HCPCS: 36415; 71045; 71275; 74177; 80048; 81001; 82550; 83690; 83735; 84484; 85025; 85379; 93005; 93010; 96374; 99285; J7040; Q9967